=== PATIENT | female | born 1975 ===

== ENCOUNTER 2017-07-06 08:58 | Outpatient (CLI) | payer BC | END 2017-07-06 08:59 | disposition home or self-care (01) | LOC: BICULT 08:58 | PROVIDERS: ATTEND Obstetrics & Gynecology | DX: N60.22 Fibroadenosis of left breast (principal) | CPT/HCPCS: 19083; 88305; G0206-LT ==

== ENCOUNTER 2018-04-02 05:41 | Inpatient (IN) | payer BC, MEDICAID, OTHER, SELFPAY ==
[2018-04-02] MEDS ORDERED: Ondansetron HCl/PF 4 MG/2 ML Vial IVP PRN ×4 (05:49→09:15)
[2018-04-02] MEDS ORDERED: Bicitra 30 ML UDCUP PO SCH (05:49)
[2018-04-02] MEDS ORDERED: Promethazine HCl 25 MG/ML VIAL IM PRN ×2 (05:49→07:36)
[2018-04-02] MEDS ORDERED: CEFAZOLIN/Water 2 GM/20 ML SYRINGE SLOW IVP SCH (05:49)
[2018-04-02 06:11] VITALS: BMI 36.8
[2018-04-02 06:31] LABS: Hemoglobin 11.8 g/dL (12.0-16.0); Mean Corpuscular HGB CONC 33.9 g/dL (32.0-36.0); Mean Corpuscular Hemoglobin 29.1 pg (27.0-31.0); Mean Corpuscular Volume 85.8 fL (78.0-98.0); Mean Platelet Volume 8.2 fL (7.4-10.4); Platelet Count 325 thou/uL (130-400); Red Blood Cell (RBC) Count 4.05 mill/uL (4.20-5.40); White Blood Cell (WBC) Count 9.5 thou/uL (4.8-10.8)
[2018-04-02] MEDS ORDERED: Lactated Ringer's 1,000 ML IV SCH ×2 (06:45→09:15)
[2018-04-02 07:04] LABS: Syphilis Antibody Nonreactive (Nonreactive); Syphilis Antibody Index 0.03 S/CO (<1.00 Non-Reactive)
[2018-04-02] MEDS ORDERED: PHENYLEPHRINE-NS 100 MCG/ML 10 ML SYRINGE ONE (07:04)
[2018-04-02] MEDS ORDERED: Oxytocin 10 UNITS/ML VIAL ONE ×2 (07:04→08:21)
[2018-04-02] MEDS ORDERED: Bupivacaine 0.75% W/DEXTROSE 8.25% 2 ML AMP ONE (07:04)
[2018-04-02] MEDS ORDERED: Lidocaine 1% PF 5 ML VIAL ONE (07:04)
[2018-04-02] MEDS ORDERED: Ondansetron HCl/PF 4 MG/2 ML Vial ONE (07:04)
[2018-04-02] MEDS ORDERED: Morphine PF 1 MG/ML SYR ONE (07:04)
[2018-04-02 07:05] LABS: HBSAg Index 0.16 S/CO (0-0.99); Hep B Surf Ag Non-Reactive S/CO (NonReactive)
[2018-04-02] MEDS ORDERED: Promethazine HCl 25 MG SUPP PR PRN (07:36)
[2018-04-02] MEDS ORDERED: diphenhydrAMINE 50 MG/ML VIAL IVP PRN (07:36)
[2018-04-02] MEDS ORDERED: Meperidine HCl/PF 25 MG/ML VIAL SLOW IVP PRN (07:36)
[2018-04-02] MEDS ORDERED: Eucerin (Mineral Oil/Petrolatum,White) 30 gm Jar TOP PRN (07:36)
[2018-04-02] MEDS ORDERED: Naloxone HCl 0.4 mg/ml Vial IVP PRN ×2 (07:36)
[2018-04-02] MEDS ORDERED: Naloxone HCl 0.4 mg/ml Vial IV PRN (07:36)
[2018-04-02] MEDS ORDERED: Ketorolac Tromethamine 30 MG/ML VIAL IVP PRN (07:36)
[2018-04-02] MEDS ORDERED: Communication Order-Pharmacy FS SCH (07:45)
[2018-04-02] MEDS ORDERED: Ketorolac Tromethamine 30 MG/ML VIAL IVP SCH (07:45)
[2018-04-02] MEDS ORDERED: Adacel (T-DAP) 0.5 ML VIAL IM ONE (09:15)
[2018-04-02] MEDS ORDERED: Lanolin Ointment 7 GM TUBE TOP PRN (09:15)
[2018-04-02] MEDS ORDERED: diphenhydrAMINE 25 MG CAP PO PRN (09:15)
[2018-04-02] MEDS ORDERED: NS / Oxytocin 40 units/1000ml 1,000 ML IV SCH (09:15)
[2018-04-02] MEDS ORDERED: Bisacodyl 10 MG SUPP PR PRN (09:15)
[2018-04-02] MEDS ORDERED: Simethicone Chewable 80 MG TAB PO PRN (09:15)
[2018-04-02] MEDS ORDERED: Acetaminophen 325 MG TAB PO PRN (09:15)
[2018-04-02] MEDS ORDERED: Zolpidem Tartrate 5 MG TAB PO PRN (09:15)
[2018-04-02] MEDS: Ferrous Sulfate 325 MG TAB PO SCH (15:19)
--- NOTE | 2018-04-02 17:52 | OP ---
DATE OF SERVICE: 04/02/2018 ATTENDING STAFF PHYSICIAN: Matias Rothman M.D. SURGEON: Matias Rothman M.D. PREOPERATIVE DIAGNOSES: 1. Term intrauterine at 39 and 1/7 weeks. 2. Prior section x2. POSTOPERATIVE DIAGNOSES: 1. Term intrauterine at 39 and 1/7 weeks. 2. Prior section x2. PROCEDURES: 1. Repeat low transverse section. 2. Vacuum-assisted delivery of vertex. ANESTHESIA: Spinal catheterization. FINDINGS: 1. Viable male , 8 pounds 9 ounces, Apgars 6 and 9. 2. Normal uterus, tubes, and ovaries. COMPLICATIONS: None. SPECIMENS REMOVED: Cord blood. ESTIMATED BLOOD LOSS: 520 mL PROCEDURE: After thorough consent and counseling, Ms. Miri Burris was taken to the operating ro om and adequate level of anesthesia was obtained by spinal catheterization. The patient was prepped and draped in the usual sterile fashion for abdominal surgery. A Johnson was placed in the bladder, wh ich was noted to be draining clear urine. Attention was then turned to performing the repeat low tra nsverse section. A Pfannenstiel incision was made and carried sharply to the fascia which was also sharply incised. T he midline was identified and the rectus muscles were retracted laterally. The abdominal peritoneal cavity was entered with usual safeguards carried out. A retractor was placed and a bladder flap was created on the vesicouterine peritoneum. The bladder was noted to be fairly densely adherent to the mid portion of the uterus. The bladder was swept well out of the operative field and a bladder blade was then placed. A low transverse incision was made on the well-developed lower uterine segment. U mohinder entering the amniotic sac, copious amount of clear amniotic fluid was visualized. The infant was noted to be vertex presentation in the occiput anterior position, still high in the pelvis. The att empt was then made at delivery of the vertex in an atraumatic fashion and it was noted that scarring on the rectus muscles and scar tissue was preventing an atraumatic delivery. A vacuum was then utili zed to deliver the vertex in an atraumatic fashion. The vacuum cup was placed on the occiput of the vertex and flexion was performed and the baby was delivered without difficulty. Nuchal cord x1 was reduced. Shoulders and body were also delivered in an atraumatic fashion. The cord was double clamped and cut and infant was handed to the neonatology team in attendance for the delivery. Dr. Hernandez mitchell was the attending lining printer. The was vigorous male, weighing 8 pounds 9 ounces with Apgars of 6 and 9 obtained at 1 and 5 minutes respectively. Cord blood was obtained. The placenta w as manually removed from the uterus. The uterus was exteriorized and good tone was noted. The uteri ne cavity was cleared of any remaining clot and fluid. The low transverse incision was closed with a running locking ligature of #1 chromic. A second imbricating layer was placed to facilitate strengt h and hemostasis. Because of the previous adhesions and how high the bladder was on the uterus, ther e was no reapproximated to the bladder flap. The uterus, fallopian tubes and ovaries were inspected and noted to be normal. Seprafilm was applied to the low transverse incision in the area where the p revious bladder flap was taken down. The posterior cul-de-sac was cleared of clot and fluid. The ut erus was returned to the abdomen. Good tone and hemostasis was again appreciated. Lap, sponge, and needle counts were correct. The peritoneum was then closed with a running ligature of 2-0 Vicryl sut ure. The rectus muscles were reapproximated in the midline with interrupted ligatures of 2-0 Vicryl suture. The fascia was then closed with 2 ligatures of 0 Vicryl suture, which were tied in the midli ne. Good fascial integrity was appreciated. The incision was then irrigated with copious amount of warm normal saline. Hemostasis was obtained with Bovie cauterization. The subcutaneous tissue was t hen closed with multiple interrupted [id number] ligatures of 2-0 plain suture. The skin was the n closed with a subcuticular stitch of 4-0 Monocryl. Dermabond was applied to the incision. Lap, sp onge, and needle counts were correct x3. Estimated blood loss during the surgical procedure was appr oximately 520 mL. A pressure dressing and ice packs were subsequently placed. The patient was awake sheri, taken to recovery room in good condition. Immediately following surgery, the patient and family were made aware of the surgical procedure and operative findings. Questions were answered to their satisfaction. The baby was returned to the mother in the recovery room and was immediately placed fo . The patient and her were very appreciative of the care rendered here at the [facility] this morning.
[2018-04-02] MEDS ORDERED: Meperidine HCl/PF 25 MG/ML VIAL IM PRN (19:45)
[2018-04-02] MEDS ORDERED: HYDROcodone/Acetaminophen 5/325 mg Tablet PO PRN (19:45)
[2018-04-02] MEDS: Ibuprofen 800 MG TAB PO SCH (21:29)
[2018-04-02] MEDS: Docusate Calcium (SURFAK) 240 MG CAP PO SCH (21:29)
[2018-04-03] MEDS: HYDROcodone/Acetaminophen 5/325 mg Tablet PO PRN ×2 (00:02→11:54)
[2018-04-03] MEDS: Ibuprofen 800 MG TAB PO SCH ×3 (05:18→21:11)
[2018-04-03 05:28] LABS: Hemoglobin 11.1 g/dL (12.0-16.0); Mean Corpuscular HGB CONC 33.3 g/dL (32.0-36.0); Mean Corpuscular Hemoglobin 29.1 pg (27.0-31.0); Mean Corpuscular Volume 87.6 fL (78.0-98.0); Mean Platelet Volume 8.1 fL (7.4-10.4); Platelet Count 317 thou/uL (130-400); Red Blood Cell (RBC) Count 3.81 mill/uL (4.20-5.40); White Blood Cell (WBC) Count 10.6 thou/uL (4.8-10.8)
[2018-04-03] MEDS: Ferrous Sulfate 325 MG TAB PO SCH ×2 (09:30→17:01)
[2018-04-03] MEDS: Docusate Calcium (SURFAK) 240 MG CAP PO SCH ×2 (09:30→21:11)
[2018-04-03] MEDS: Prenatal Vitamin 1 TAB PO SCH (09:30)
[2018-04-04] MEDS: Ibuprofen 800 MG TAB PO SCH ×2 (06:05→13:11)
[2018-04-04 09:21] VITALS: BP 108/62; TEMP 98.2
[2018-04-04] MEDS: Ferrous Sulfate 325 MG TAB PO SCH (10:09)
[2018-04-04] MEDS: Prenatal Vitamin 1 TAB PO SCH (10:10)
[2018-04-04] MEDS: Docusate Calcium (SURFAK) 240 MG CAP PO SCH (10:10)
== END 2018-04-04 16:00 | disposition home or self-care (01) | DRG 766 ==
LOC: L&D 05:41 → 3SW 13:10
PROVIDERS: ADMIT Obstetrics & Gynecology; ATTEND Obstetrics & Gynecology
PROC: 10D00Z1 Extraction of Products of Conception, Low, Open Approach (ICD-10-PCS; principal; 2018-04-02)
DX: O34.211 Maternal care for low transverse scar from previous cesarean delivery (principal); Z3A.39 39 weeks gestation of pregnancy; Z37.0 Single live birth
CPT/HCPCS: 36415; 51702; 85027; 86780; 86850; 86900; 86901; 87340; J1885; J2001; J2274; J2310; J2405; J2590; J3490